=== PATIENT | male | born 1950 | race Caucasian/White ===

== ENCOUNTER 2021-12-16 19:35 | Emergency (ER) | payer MEDICARE, OTHER ==
[~2021-12-16] VITALS: Ht 180.3 cm; Wt 87.1 kg
[2021-12-16] MEDS ORDERED: SODIUM CHLORIDE 0.9% 1000ML 1,000 ML IV SCH (20:30)
[2021-12-16] MEDS ORDERED: SODIUM CHLORIDE 0.9% 1000ML 1,000 ML ONE (20:39)
== END 2021-12-16 23:08 | disposition home or self-care (01) ==
LOC: FSED 19:45
DX: R41.82 Altered mental status, unspecified (principal); R11.2 Nausea with vomiting, unspecified; E78.5 Hyperlipidemia, unspecified
CPT/HCPCS: 70450; 71250; 80053; 81003; 85025; 99283; J7030

== ENCOUNTER 2025-08-15 10:24 | Emergency (ER) | payer MEDICARE, OTHER ==
[~2025-08-15] VITALS: Ht 180.3 cm; Wt 88.0 kg
[2025-08-15 10:35] VITALS: PULSE 68; RESP 20; TEMP 98.7; O2SAT 95
[2025-08-15] MEDS ORDERED: TAMIFLU75 MG PO (11:05)
[2025-08-15] MEDS ORDERED: AZITHROMYCIN250 MG PO (11:05)
== END 2025-08-15 11:48 | disposition home or self-care (01) ==
LOC: FSED 11:02
DX: R05.9 Cough, unspecified (principal); J10.1 Influenza due to other identified influenza virus with other respiratory manifestations; R51.9 Headache, unspecified; E78.5 Hyperlipidemia, unspecified; Z11.52 Encounter for screening for COVID-19
CPT/HCPCS: 0223U; 71046; 83518; 87400; 99284